=== PATIENT | male | born 1960 ===

== ENCOUNTER 2016-12-15 10:19 | Emergency (ER) | payer SELFPAY ==
--- NOTE | 2016-12-15 11:39 | UC ---
Leslie Lopes Emily, scribed for Selene Cabrera DO on 12/15/16 at 1103 . Skin Complaint HPI - HPI Summary HPI Summary: This patient is a 56 year old M presenting to urgent care with a chief complaint of tick bite to R shoulder that happened yesterday. Pt denies tick being present for more than 24 hours. Pt reports tick was not engorged at time of removal and tick head being still present. The patient rates the pain 0/10 in severity. Symptoms aggravated by nothing. Symptoms alleviated by nothing. Medications reviewed this visit. - History of Current Complaint Chief Complaint: UCSkin Time Seen by Provider: 12/15/16 10:47 Stated Complaint: TICK IN SHOULDER Hx Obtained From: Patient Onset/Duration: Sudden Onset, Lasting Days, Still Present Skin Exposure Onset/Duration: Days Ago Onset Severity: Mild Current Severity: Mild Pain Intensity: 0 Pain Scale Used: 0-10 Numeric Location: Other - R shoulder Aggravating Factor(s): Nothing Alleviating Factor(s): Nothing Associated Signs & Symptoms: Negative: Nausea, Vomiting, Weakness, Difficulty Breathing, Cough, Chest Pain, Abdominal Pain, Lightheadedness - Allergy/Home Medications Allergies/Adverse Reactions: Allergies Allergy/AdvReac Type Severity Reaction Status Date / Time No Known Allergies Allergy Verified 12/15/16 10:36 Home Medications: Home Medications NK [No Home Medications Reported] 12/15/16 [History Confirmed 12/15/16] Review of Systems Constitutional: Negative, Other - Negative fever Skin: Other - Positive tick in R shoulder Eyes: Negative Respiratory: Negative Cardiovascular: Negative Gastrointestinal: Negative Motor: Negative Neurological: Negative All Other Systems Reviewed And Are Negative: Yes PMH/Surg Hx/FS Hx/Imm Hx Previously Healthy: Yes Other Cardiovascular History: Negative Other Respiratory History: Negative Other History Of: Negative For: Hepatitis C - Surgical History Surgical History: None - Family History Known Family History: Positive: Cardiac Disease, Diabetes - Social History Occupation: Employed Full-time Lives: With Family Alcohol Use: None Substance Use Type: None Smoking Status (MU): Never Smoked Tobacco Physical Exam Triage Information Reviewed: Yes Appearance: Well-Appearing, No Pain Distress, Well-Nourished Vital Signs: Initial Vital Signs Temp 97.5 F 12/15/16 10:36 Pulse 60 12/15/16 10:36 Resp 16 12/15/16 10:36 BP 182/98 10/22/17 10:36 Pulse Ox 100 12/15/16 10:36 Vital Signs Reviewed: Yes Eyes: Positive: Conjunctiva Clear. Negative: Discharge ENT: Positive: Normal ENT inspection. Negative: Muffled/hoarse voice Neck exam: Normal Neck: Positive: Supple Respiratory: Positive: Lungs clear, Normal breath sounds, No respiratory distress, No accessory muscle use Cardiovascular: Positive: RRR, No Murmur Musculoskeletal Exam: Normal Neurological: Positive: Alert, Muscle Tone Normal Psychological Exam: Normal Psychological: Positive: Age Appropriate Behavior Skin Exam: Normal Skin: Positive: Other - Warm, dry, and normal color. Tick bite site on R shoulder Course/Dx - Course Course Of Treatment: This patient is a 56 year old M presenting to urgent care with a chief complaint of tick bite to R shoulder that happened yesterday. Pt denies tick being present for more than 24 hours. Pt reports tick was not engorged at time of removal and tick head being still present. The patient rates the pain 0/10 in severity. Symptoms aggravated by nothing. Symptoms alleviated by nothing. Medications reviewed this visit. Physical Exam Findings. Tick bite site on R shoulder. Medical Decision Making. The patient has been encouraged to quit chewing tobacco. Patient will be discharged with follow up from PCP. The patient is agreeable with this plan. Elevated blood pressure noted. Ordered recheck with manual cuff, which revealed significantly lowered BP but still above target range. Discussed at length with pt getting BP under control, during this discussion he revealed he has 4-6 drinks every night. I explained to pt that alcohol abuse can play a huge roll in elevated BP. Pt stated he doesn't need to drink. I asked pt if he has ever had less than 4-5 drinks in a night, and he does not remember. I informed him that if he experiences shakiness, irritability, racing heart, or agitiation he should go to the ER. I explained the risks of alcohol withdrawl. I emphasized the importance of pt following up with PCP in the next 3-5 days. - Diagnoses Provider Diagnoses: Elevated blood pressure without diagnosis of hypertension. Tick bite Discharge - Discharge Plan Condition: Stable Disposition: HOME Patient Education Materials: Tick Bite (ED), Hypertension (ED) Referrals: No Primary Care Phys,NOPCP [Primary Care Provider] - Additional Instructions: YOUR BLOOD PRESSURE WAS ELEVATED AT THIS VISIT. THIS DOES NOT MEAN THAT YOU HAVE HIGH BLOOD PRESSURE BUT, YOU SHOULD ESTABLISH WITH A PCP FOR FURTHER EVALUATION AND TREATMENT. THIS IS IMPORTANT. IF YOU DEVELOP ANY NEW SYMPTOMS SUCH DIZZINESS, SHORTNESS OF BREATH, HEAD ACHE, VISUAL CHANGES, CHEST PAIN, NAUSEA OR VOMITING, BLOOD IN YOUR URINE, LIGHTHEADEDNESS, OR ANY OTHER CONCERNING NEW SYMPTOM, GO TO THE ED IMMEDIATELY. FOLLOW-UP CARE: You should establish with a private physician for follow-up care IN 3-5 DAYS. If you are unable to get a timely appointment, or if you are worsening, call us or return for re-evaluation. An additional resource available to assist in finding the appropriate physician for your health care needs is the [facility]. You may contact them by calling [phone]. The documentation as recorded by the Leslie eng Emily accurately reflects the service I personally performed and the decisions made by me, Selene Cabrera DO.
== END 2016-12-15 11:25 | disposition home or self-care (01) ==
LOC: UCEAST 10:19
DX: S40.261A Insect bite (nonvenomous) of right shoulder, initial encounter (principal); W57.XXXA Bitten or stung by nonvenomous insect and other nonvenomous arthropods, initial encounter; Y93.9 Activity, unspecified; Y92.9 Unspecified place or not applicable; Y99.9 Unspecified external cause status; R03.0 Elevated blood-pressure reading, without diagnosis of hypertension
CPT/HCPCS: 99201; G0463